=== PATIENT | male | born 1965 | race American Indian/Alaskan Native ===

== ENCOUNTER 2017-07-05 09:09 | Outpatient (CLI) | payer MEDICARE ==
--- NOTE | 2017-07-05 11:33 | Ultrasound Report ---
BILATERAL DIGITAL DIAGNOSTIC MAMMOGRAM with CAD and RIGHT BREAST ULTRASOUND: 07/05/17 10:00:00 CLINICAL: 51-year-old male with bilateral breast enlargement. COMPARISON:None. FINDINGS: The breasts are enlarged and almost entirely fatty.Minimal bilateral subareolar fibroglandular densities. No mass, architectural distortion or suspicious calcifications. Ultrasound of both breast (including all four quadrants and the retroareolar area) was performed and demonstrated normal fatty structures with minimal bilateral subareolar fibroglandular structures. No mass, cyst or shadowing. IMPRESSION: Bilateral benign breast hypertrophy with almost entirely fatty breasts. BI-RADS CATEGORY: 2 -- Benign RECOMMENDATION: Clinical follow-up. COMMENT: Patient follow-up letters are generated by our [email or web address] application.
== END 2017-07-05 09:10 | disposition home or self-care (01) ==
LOC: MAMMO 09:09
PROVIDERS: ATTEND Internal Medicine Endocrinology, Diabetes & Metabolism
DX: N62 Hypertrophy of breast (principal)
CPT/HCPCS: 76641; G0204; 77066